=== PATIENT | male | born 1955 | race Caucasian/White ===

== ENCOUNTER 2023-11-28 07:23 | Outpatient (CLI) | payer MEDICARE, SELFPAY ==
--- NOTE | ~2023-11-28 | XR_ITS ---
Right Forearm AP and lateral views of the right forearm were performed. Clinical History: Posterior laceration Findings: No fracture or dislocation is seen. Osseous alignment in anatomic. There is severe degener ative change of the radial scaphoid articulation. There is probable moderate elbow joint degenerative change. Soft tissues are unremarkable. Impression: No acute abnormality evident. 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 Reviewed, dictated and finalized at [facility]. Impression: No acute abnormality evident. 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
== END 2023-11-28 07:24 | disposition home or self-care (01) ==
PROVIDERS: PCP Internal Medicine; Visit Provider Nurse Practitioner Family
DX: L03.113 Cellulitis of right upper limb (principal)
CPT/HCPCS: 73090

== ENCOUNTER 2024-03-13 08:45 | Outpatient (CLI) | payer MEDICARE, SELFPAY ==
--- NOTE | ~2024-03-13 | CT_ITS ---
CT of the Abdomen and Pelvis: Indication: Chronic constipation Technique: 2.5 mm axial scans were obtained through the abdomen and pelvis following intravenous adm inistration of 100 cc of Omnipaque 350. Dose reduction technique was used on this scan by utilizing a utomated exposure control and iterative reconstruction technique. The dose-length product (DLP) was 3 88.22 mGy-cm. Findings: Scans through the lung bases-a probable chronic interstitial change or postinflammatory ch yuri in the right middle lobe. The liver, spleen, pancreas, gallbladder, adrenals and kidneys are within normal limits. There are at herosclerotic calcifications of the aorta. No lymphadenopathy. No bowel obstruction or bowel wall thickening. There is no evidence to suggest acute appendicitis. Images through the pelvis were performed. Urinary bladder unremarkable. No pelvic mass seen. There is advanced degenerative spondylosis of the lumbar spine. Impression: No acute abnormalities seen. Reviewed, dictated and finalized at [facility]. [employer] Impression: No acute abnormalities seen.
[2024-03-13 09:00] LABS: Basophils Absolute Auto 0.04 K/mm3 (0.00-0.10); Basophils Percent Auto 0.7 % (0.0-1.0); Eosinophils Absolute Auto 0.51 K/mm3 (0.02-0.50); Eosinophils Percent Auto 8.5 % (1.0-6.0); Hematocrit 41.5 % (37.0-46.0); Hemoglobin 14.6 g/dL (12.4-15.3); Immature Granulocyte Absolute 0.02 K/mm3 (0.00-0.00); Immature Granulocyte Percent A 0.3 % (0.0-0.0); Lymphocytes Absolute Auto 1.19 K/mm3 (1.10-4.50); Lymphocytes Percent Auto 19.9 % (18.0-42.0); Mean Corpuscular HGB Conc 35.2 g/dL (32-36); Mean Corpuscular Hemoglobin 32.5 pg (27.0-31.0); Mean Corpuscular Volume 92.4 fL (78.0-102.0); Mean Platelet Volume 9.4 fl (8.7-11.0); Monocytes Absolute Auto 0.63 K/mm3 (0.10-0.90); Monocytes Percent Auto 10.6 % (2.0-11.0); Neutrophils Absolute Auto 3.58 K/mm3 (1.70-7.20); Platelet Count Result 285 K/mm3 (150-420); Red Blood Count 4.49 M/mm3 (4.70-6.10); Red Cell Distribution Width 12.6 % (11.6-14.4)
[2024-03-13 09:21] LABS: Appearance Urine Clear (Clear); Bilirubin Urine Negative (Negative); Blood Urine Negative (Negative); Glucose Urine UA Negative (Negative); Ketones Urine Trace (Negative); Leukocyte Esterase Ur Negative (Negative); Nitrate Urine Negative (Negative); Protein Urine Trace (Negative); Specific Grav Ur >= 1.030 (1.010-1.020); Urobilinogen Urine 0.2 mg/dL (0.2-1.0)
[2024-03-13 09:31] LABS: Add Urine Microscopic? YES; Bacteria Urine Rare /hpf; Color Urine Dark Yellow (Yellow); Mucus Urine Heavy /lpf; RBC Urine None seen /hpf (0-2); Squamous Epithelial Cell Urine Few /hpf (Few); WBC Urine None seen /hpf (0-3)
[2024-03-13 09:46] LABS: Alanine Aminotransferase 20 U/L (16-63); Albumin Level 3.6 g/dL (3.4-5.0); Alkaline Phosphatase 69 U/L (46-116); Anion Gap 8 mmol/L (4-12); Aspartate Amino Transferase 20 U/L (15-37); Bilirubin,Total 1.6 mg/dL (0.00-1.00); Blood Urea Nitrogen 15 mg/dL (7-18); Carbon Dioxide 30 mmol/L (21-32); Chloride 103 mmol/L (98-108); Estimated Glomerular Filt Rate > 60; Free T3 1.99 pg/mL (2.18-3.98); Free T4 Free Thyroxine 0.92 ng/dL (0.76-1.46); Glucose 101 mg/dL (70-99); Magnesium 1.7 mg/dL (1.8-2.4); Osmolality Calculated 292 mOsm/kg (285-295); Phosphorus 3.3 mg/dL (2.6-4.7); Potassium 4.5 mmol/L (3.5-5.1); Sodium 141 mmol/L (136-145); Thyroid Stimulating Hormone 1.81 uIU/mL (0.36-3.74); Total Protein 6.8 g/dL (6.4-8.2)
== END 2024-03-13 08:46 | disposition home or self-care (01) ==
LOC: CHSIMG 08:48
PROVIDERS: PCP Internal Medicine; Visit Provider Internal Medicine
DX: K59.00 Constipation, unspecified (principal); R14.0 Abdominal distension (gaseous)
CPT/HCPCS: 36415; 74177; 80053; 81001; 83735; 84100; 84439; 84443; 84481; 85025; Q9967

== ENCOUNTER 2024-08-25 01:11 | Day surgery (SDC) | payer MEDICARE, SELFPAY ==
[2024-08-11 14:32] VITALS: BMI 25.1
[2024-08-25 07:10] VITALS: BP 145/78; PULSE 69; RESP 16; TEMP 36.4; O2SAT 99; BMI 23.7
[2024-08-25] MEDS: LACTATED RINGERS 1,000 ML 150 ML IV CONT (07:16)
--- NOTE | 2024-08-25 08:19 | PM.IMHP ---
H&P: HPI History of Present Illness Date/Time: 08/25/24 08:19 Chief Complaint: family history of colon cancer, Positive fit test Narrative: this is a 69-year-old man who presents for colonoscopy. he last had a colonoscopy about 4-5 years ago. He recently had a fit test performed which was positive. He has a family history of colon cancer in his mother and grandfather. He denies any hematochezia or melena. Review of Systems Review of Systems: All systems reviewed & are unremarkable except as noted in HPI and below Constitutional: Constitutional: Denies chills, Denies fever(s), Denies headache(s) and Denies weight loss Eyes: Eyes: Denies change in vision ENT: Denies dizziness, Denies headache(s), Denies neck mass and Denies throat swelling Cardiovascular: Cardiovascular: Denies chest pain, Denies lightheadedness and Denies dyspnea Respiratory: Respiratory: Denies cough, Denies dyspnea and Denies wheezing Gastrointestinal: Gastrointestinal: Denies abdominal pain, Denies change in bowel habits, Denies nausea and Denies vomiting Genitourinary: Genitourinary: Denies hematuria and Denies dysuria Musculoskeletal: Musculoskeletal: Reports as per HPI Integumentary/Breasts: Skin/Breast: Reports as per HPI Neurologic: Denies dizziness and Denies headache(s) Allergic/Immunologic: Allergic/Immunologic: Denies throat swelling and Denies wheezing PMF Past Medical History Medical History Arthritis Cancer COPD (chronic obstructive pulmonary disease) Surgical History Surgical History History of bilateral knee replacement 2017 History of reverse total replacement of right shoulder joint 2021 Family History Family History Mother Cancer Social History Social History Smoking packs per day: 1 Smoking cigarettes per day: 20.0 Years smoked: 40 Smoking pack-years: 40.00 Smoking status: Former smoker Smoking end date: 04/23/07 Alcohol intake: current Drinks per week: 10 Substance use: current Substance use type: marijuana Other substance usage details: gummies for sleep Lack of Transportation: No Lack of Food: Never True Current Housing: I Have Housing Concerned About Future Housing: No Difficulty Paying Gas/Electric Bills: No Difficulty Paying for Meds: No Currently Unemployed: No Education: High School Diploma/GED Difficulty w/ Childcare or Family Care: No Living arrangements: with family Spiritual care concerns: No Meds Home Medications and Allergies Home Medications ?Medication ?Instructions ?Recorded ?Confirmed ?Type atorvastatin 10 mg tablet 10 mg PO DAILY 06/13/22 08/25/24 History clindamycin HCl 300 mg capsule 300 mg PO 06/13/22 History diclofenac sodium 75 mg 75 mg PO BID 06/13/22 08/25/24 History tablet,delayed release doxycycline monohydrate 100 mg 100 mg PO 06/13/22 History capsule fluticasone 250 mcg-salmeterol 50 ea inhalation BID 06/13/22 History mcg/dose blistr powdr for inhalation ([facility]) prednisone 20 mg tablet 20 mg PO 06/13/22 History tadalafil 10 mg tablet 10 mg PO DAILY PRN sexual activity 06/13/22 08/11/24 History doxycycline hyclate 100 mg capsule mg 08/11/24 History duloxetine 20 mg capsule,delayed 20 mg PO BID 08/11/24 08/25/24 History release pantoprazole 20 mg tablet,delayed 20 mg PO DAILY 08/11/24 08/25/24 History release Allergies Allergy/AdvReac Type Severity Reaction Status Date / Time Penicillins AdvReac Unknown Unknown Verified 08/25/24 07:08 Vital Signs Vital Signs - 24 hr 08/25/24 07:10 Temperature 97.6 F Pulse Rate 69 Respiratory Rate 16 Blood Pressure 145/78 H Pulse Oximetry 99 Oxygen Delivery Room Air Exam Const: General: no acute distress and alert Orientation/consciousness: patient oriented x3 HENMT: Head: normocephalic and atraumatic Ears: hearing grossly normal bilaterally Face/Nose/Sinus: Normal nares present Mouth: Yes Normal oral and palatal mucosa present Eyes: Periorbital: periorbital findings normal Sclera: sclerae normal EOM: EOMs intact bilaterally Neck: Neck: normal visual inspection, no lymphadenopathy and trachea midline Chest: Chest palpation & inspection: normal inspection of the chest Resp: Effort & Inspection: normal respiratory effort Auscultation: clear to auscultation bilaterally Cardio: Jugular venous distension: no JVD Rate: regular rate Rhythm: regular rhythm Heart sounds: S1 normal heart sound present and S2 normal heart sound present Peripheral pulses: Peripheral pulses 2+ throughout GI: Inspection: normal to inspection GI Palp: Yes Soft to palpation, No Tenderness to palpation present (GI), No Guarding due to palpation present (GI) and No Rebound tenderness present Percussion: Yes normal to percussion Auscultation: normal bowel sounds : General: Yes no CVA tenderness Back/Spine/Pelvis: Back: no CVA tenderness Neuro: General: patient oriented x3, no focal motor deficits and CN's II-XI intact bilaterally Cognition (Neuro): normal cognition Speech: normal speech Motor exam (neuro): 5/5 motor strength present throughout Extrem: General: capillary refill normal and no clubbing, cyanosis or edema Assessment and Plan Assessment and plan (1) Positive FIT (fecal immunochemical test): Code(s): R19.5 - Other fecal abnormalities Status: Acute Assessment and Plan: I have recommended colonoscopy. I have discussed the procedure, risks, benefits, and alternatives. Questions were answered. Patient is agreeable to proceed. (2) Family hx of colon cancer: Code(s): Z80.0 - Family history of malignant neoplasm of digestive organs Status: Acute
--- NOTE | 2024-08-25 08:23 | WPDANESEPPF ---
Anes - Initial Pre Proc Eval Procedure: Operation Date: 08/25/24 08:30 Proposed Procedures p Colonoscopy - Giovani Carpenter DO Date/Time: 08/25/24 08:23 Surgeon: Giovani Carpenter DO Pre Op Diagnosis: abnormal FIT test, constipation Patient Data Age: 69 Gender: M Height: 1.73 m Weight: 70.7 kg Last Vital Signs Temp 97.6 F 08/25/24 07:10 Pulse 69 08/25/24 07:10 Resp 16 08/25/24 07:10 BP 145/78 H 08/25/24 07:10 Pulse Ox 99 08/25/24 07:10 O2 Del Method Room Air 08/25/24 07:10 Allergies Allergy/AdvReac Type Severity Reaction Status Date / Time Penicillins AdvReac Unknown Unknown Verified 08/25/24 07:08 Home Medications ?Medication ?Instructions ?Recorded ?Confirmed ?Type atorvastatin 10 mg tablet 10 mg PO DAILY 06/13/22 08/25/24 History clindamycin HCl 300 mg capsule 300 mg PO 06/13/22 History diclofenac sodium 75 mg 75 mg PO BID 06/13/22 08/25/24 History tablet,delayed release doxycycline monohydrate 100 mg 100 mg PO 06/13/22 History capsule fluticasone 250 mcg-salmeterol 50 ea inhalation BID 06/13/22 History mcg/dose blistr powdr for inhalation ([facility]) prednisone 20 mg tablet 20 mg PO 06/13/22 History tadalafil 10 mg tablet 10 mg PO DAILY PRN sexual activity 06/13/22 08/11/24 History doxycycline hyclate 100 mg capsule mg 08/11/24 History duloxetine 20 mg capsule,delayed 20 mg PO BID 08/11/24 08/25/24 History release pantoprazole 20 mg tablet,delayed 20 mg PO DAILY 08/11/24 08/25/24 History release Patient hx anesthesia problems: none Family hx anesthesia problems: none Results Review: All pre-operative results and documents have been reviewed as part of the pre-operative evaluation. [facility] Past Medical History Medical History Cancer COPD (chronic obstructive pulmonary disease) Arthritis Surgical History Surgical History History of reverse total replacement of right shoulder joint 2021 History of bilateral knee replacement 2017 Family History Family History Mother Cancer Social History Social History Smoking packs per day: 1 Smoking cigarettes per day: 20.0 Years smoked: 40 Smoking pack-years: 40.00 Smoking status: Former smoker Smoking end date: 04/23/07 Alcohol intake: current Drinks per week: 10 Substance use: current Substance use type: marijuana Other substance usage details: gummies for sleep Lack of Transportation: No Lack of Food: Never True Current Housing: I Have Housing Concerned About Future Housing: No Difficulty Paying Gas/Electric Bills: No Difficulty Paying for Meds: No Currently Unemployed: No Education: High School Diploma/GED Difficulty w/ Childcare or Family Care: No Living arrangements: with family Spiritual care concerns: No Anes - Eval Final PreProcedure Day of Procedure 08/25/24 08:23 Patient weight: normal Lungs: normal air movement Airway: Mallampati scale and special considerations (Upper and lower dentures. ) Neurological: alert and oriented Last oral intake: >/= 8 hours ASA classification: III Emergent: no Anesthetic plan: proceed Anesthesia type and monitoring: general GIVS and standard monitoring Results Review: All pre-operative results and documents have been reviewed as part of the pre-operative evaluation. COPD ex smoker quit 2007. Hyperlipidemia. Informed Consent: The patient's anesthetic plan and its attendant risks and benefits were discussed with the patient/family/POA. Questions were solicited and answers provided to the satisfaction of the patient/family/POA.
[2024-08-25 08:47] VITALS: BP 102/69; PULSE 70; RESP 26; O2SAT 98
[2024-08-25 08:57] VITALS: BP 125/76; PULSE 61; RESP 17; O2SAT 100
[2024-08-25 09:07] VITALS: BP 80/76; PULSE 60; RESP 15; O2SAT 99
== END 2024-08-25 09:19 | disposition home or self-care (01) ==
PROVIDERS: PCP Internal Medicine; Visit Provider Surgery
PROC: 0DJD8ZZ Inspection of Lower Intestinal Tract, Via Natural or Artificial Opening Endoscopic (ICD-10-PCS; CPT 45378; principal; 2024-08-25 08:30)
DX: R19.5 Other fecal abnormalities (principal); J44.9 Chronic obstructive pulmonary disease, unspecified; E78.5 Hyperlipidemia, unspecified; M19.90 Unspecified osteoarthritis, unspecified site; F12.90 Cannabis use, unspecified, uncomplicated; Z79.51 Long term (current) use of inhaled steroids; Z79.52 Long term (current) use of systemic steroids; Z98.890 Other specified postprocedural states; Z87.891 Personal history of nicotine dependence; Z85.9 Personal history of malignant neoplasm, unspecified; Z80.0 Family history of malignant neoplasm of digestive organs
CPT/HCPCS: 45378; J2704; J7120

== ENCOUNTER 2025-04-02 13:18 | Outpatient (CLI) | payer MEDICARE, SELFPAY ==
--- NOTE | ~2025-04-02 | MR_ITS ---
EXAM/PROCEDURE: MR shoulder LT wo con HISTORY: LFT SHOULDER PAIN, RUPTURED BICEPS TENDON COMPARISON: None available. TECHNIQUE: Multiplanar noncontrast left shoulder MRI FINDINGS: No fracture or dislocation present. Moderately severe degenerative changes at the glenohumeral joint, as well as high riding shoulder, and large retracted rotator cuff tear involving the supraspinatus tendon and anterior portion of the infraspinatus tendon. The tendon is retracted approximately 4 cm to the medial margin of the humeral head. Trace joint effusion. No definite labral tear on this non arthrographic series. No obvious ligamentous injury. The long head of the biceps tendon is not seen within the bicipital groove. Strandy changes are present which may represent small residual component of the tendon or possibly tendon sheath. Spinoglenoid recess and suprascapular notch regions appear normal. IMPRESSION: 1. Large retracted supraspinatus tendon tear with partial retraction of the infraspinatus tendon as well. 2. Long head of the biceps may be torn with the long head tendon not confidently visualized. Consider correlation with MRI of the left humerus/arm. 3. Advanced osteoarthritic degenerative changes at the glenohumeral joint. Reviewed, dictated and finalized at location [facility]. OPERATOR IMPRESSION: 1. Large retracted supraspinatus tendon tear with partial retraction of the inf raspinatus tendon as well. 2. Long head of the biceps may be torn with the long head tendon not confidentl y visualized. Consider correlation with MRI of the left humerus/arm. 3. Advanced osteoarthritic degenerative changes at the glenohumeral joint.
== END 2025-04-02 13:19 | disposition home or self-care (01) ==
LOC: CHSIMG 13:21
PROVIDERS: PCP Internal Medicine; Visit Provider Internal Medicine
DX: M25.512 Pain in left shoulder (principal); M75.102 Unspecified rotator cuff tear or rupture of left shoulder, not specified as traumatic; M19.012 Primary osteoarthritis, left shoulder
CPT/HCPCS: 73221